=== PATIENT | male | born 1960 | race Caucasian/White ===

== ENCOUNTER → 2017-12-16 | Outpatient (CLI) | payer OTHER, MEDICAID | LOC: M LRY 14:59 | DX: M25.561 Pain in right knee (principal) | CPT/HCPCS: 73564 ==

== ENCOUNTER → 2019-03-12 | Outpatient (CLI) | payer OTHER ==
--- NOTE | 2019-03-12 10:52 | REP ---
MRI lumbar spine: 03/12/2019. Indication: Low back pain. Comparison: None. Technique: Multiplanar short and long TR sequences of the lumbar spine were obtained without IV gadolinium enhancement. Findings: Vertebral body alignment is anatomic. No worrisome marrow signal is present. The visualized cord is normal. Disc dessication is present throughout. There is disc space narrowing of L5/S1. No significant paraspinal soft tissue abnormalities are detected. L1/L2: Mild diffuse disc bulge is present without significant spinal canal or neural foraminal narrowing. L2/L3-4. Diffuse disc bulge and superimposed right lateral disc protrusion are present. There is an associated small annular fissure on the right. Mild to moderate right and mild left recess narrowing is present. The neural foramen are patent. L3/L4: Diffuse disc bulge and tiny right paracentral/lateral annular fissure are present. Bilateral facet arthropathy is present. There is mild spinal canal narrowing. Moderate right greater than left neural foraminal narrowing is present. L5/S1: Diffuse disc bulge and far right lateral annular fissure are present. No mt disc herniation is noted. Right greater than left facet arthropathy is present. There is no significant spinal canal. New narrowing. New moderate bilateral neural foraminal narrowing is present. 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 Electronically Signed by Jonatan Gomez DO 03/12/2019 10:43 A
== END ==
LOC: M PLARAD 08:40
PROVIDERS: ATTEND Nurse Practitioner Family
DX: M51.26 Other intervertebral disc displacement, lumbar region (principal); M51.27 Other intervertebral disc displacement, lumbosacral region; M51.37 Other intervertebral disc degeneration, lumbosacral region